=== PATIENT | male | born 1995 | race Caucasian/White ===

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

== ENCOUNTER 2018-11-25 20:27 | Emergency (ER) | payer OTHER ==
[2018-11-25] MEDS ORDERED: ACETAMINOPHEN 500 MG TAB PO ONE (22:01)
[2018-11-25] MEDS ORDERED: IBUPROFEN 800 MG TAB PO ONE (22:01)
--- NOTE | 2018-11-25 22:02 | EDPHY ---
H & P Smoking Status: Current every day smoker Time Seen by Provider: 11/25/18 21:20 HPI/ROS: Chief complaint: Right thumb injury History of present illness: This is a 23-year-old male who presents to the emergency department for a right thumb injury. He states he closed a car door on his thumb approximately 5 days ago. Since then he has had bruising under his thumb nail. He describes pain and pressure. No report of other open wounds to the thumb. He can still move well. No report of abnormal coolness or paresthesias. No other injuries. (Anthony Obrien) Physical Exam: General: Alert, nontoxic. Skin: No open wounds to the right thumb. There is a large subungual hematoma to the right thumbnail approximately 90% surface area. Musculoskeletal: He is flexing extending the thumb in the PIP and moving in all browne of the MCP joint well. Vascular: Capillary refill is brisk in the right thumb. Neurologic: Sensation intact in the right thumb. (Anthony Obrien) Constitutional: Initial Vital Signs Temperature (C) 37.2 C 11/25/18 20:33 Heart Rate 91 11/25/18 20:33 Respiratory Rate 16 11/25/18 20:33 Blood Pressure 112/65 11/25/18 20:33 O2 Sat (%) 97 11/25/18 20:33 O2 Delivery Mode Room Air Allergies/Adverse Reactions: No Known Allergies Allergy (Verified 11/25/18 20:34) Home Medications: Medication Instructions Recorded NK [No Known Home Meds] 11/25/18 MDM/Departure - [facility] Imaging: I viewed and interpreted images myself - [facility] Procedures: Procedure: Nail trephination Indication: Large subungual hematoma, pain Verbal consent obtained. The area was cleaned. Cautery to was used to drill a hole through it. A large amount of blood was expressed. Patient tolerated the procedure well. There was then dressed. No complications noted. (Anthony Obrien) Medications Given: Discontinued Medications Acetaminophen (Tylenol) 1,000 mg PO EDNOW ONE Stop: 11/25/18 22:02 Last Admin: 11/25/18 22:05 Dose: 1,000 mg Ibuprofen (Motrin) 800 mg PO EDNOW ONE Stop: 11/25/18 22:02 Last Admin: 11/25/18 22:05 Dose: 800 mg ED Course/Re-evaluation: Patient seen under the supervision of my secondary supervising physician Dr. Son Wu. Patient presents for a right thumb injury. The thumb is neurovascularly intact. X-rays are negative. He has a large subungual hematoma. This is drained with good pain relief. He is discharged home. Home care is discussed. Follow-up with primary care doctor recommended. Return precautions given. (Anthony Obrien) - Depart Disposition: Home, Routine, Self-Care Clinical Impression: Subungual hematoma of finger Qualifiers: Encounter type: initial encounter Qualified Code(s): S60.10XA - Contusion of unspecified finger with damage to nail, initial encounter Condition: Good Instructions: Subungual Hematoma (ED) Additional Instructions: Follow-up with primary care doctor for recheck Keep wound clean with soap and water Use ibuprofen 600 mg 3 times a day for the next 2-3 days for pain control In addition You can take 1000 mg of Tylenol 3 times a day for the next 2-3 days in addition to the ibuprofen for pain control If symptoms worsen or new symptoms develop return to the emergency room for recheck Referrals: [facility],. [Clinic] - As per Instructions
[2018-11-25 22:23] VITALS: BP 116/80
== END 2018-11-25 22:23 | disposition home or self-care (01) ==
PROC: 0H9QXZZ Drainage of Finger Nail, External Approach (ICD-10-PCS; principal; 2018-11-25)
DX: S60.111A Contusion of right thumb with damage to nail, initial encounter (principal); W23.1XXA Caught, crushed, jammed, or pinched between stationary objects, initial encounter; Y92.810 Car as the place of occurrence of the external cause